=== PATIENT | male | born 1990 | race Hispanic/Latino ===

== ENCOUNTER 2018-01-25 13:39 | Emergency (ER) | payer SELFPAY ==
[~2018-01-25 13:39] MED LIST: ISOVUE-370 76%-LOCM 1 ML ONE
[2018-01-25 14:21] LABS: #Eosinphils 0.2 thou/uL (0.0-0.7); #Lymphocytes 2.6 thou/uL (1.20-3.40); #Monocytes 0.5 thou/uL (0.11-0.59); #Neutrophils 6.6 thou/uL (1.40-6.50); %Basophils 0.1 % (0.0-1.0); %Eosinophils 1.9 % (0.0-10.0); %Lymphocytes 26.4 % (21.0-51.0); %Monocytes 5.1 % (0.0-10.0); %Neutrophils 66.4 % (42.0-75.0); Hemoglobin 14.1 g/dL (14.0-18.0); Mean Corpuscular HGB CONC 33.2 g/dL (32.0-36.0); Mean Corpuscular Hemoglobin 29.4 pg (27.0-31.0); Mean Corpuscular Volume 88.6 fl (80.0-94.0); Mean Platelet Volume 6.8 fL (7.4-10.4); Platelet Count 306 thou/uL (130-400); RBC Distribution Width 11.7 % (11.5-14.5); Red Blood Cell (RBC) Count 4.81 mill/uL (4.70-6.10)
--- NOTE | 2018-01-25 14:21 | RAD ---
PORTABLE AP CHEST X-RAY: 01/25/2018 HISTORY: Chest pain, which started this morning. History of appendectomy four to five days ago. COMPARISON: 10/12/2009 FINDINGS: The cardiac silhouette is magnified by projection. The pulmonary vasculature is within normal limits . The lungs are clear. There has been no interval change from the prior study, given differences in technique. IMPRESSION: No acute cardiopulmonary process. POS: [facility]
[2018-01-25 14:48] LABS: ALT (SGPT) 41 U/L (8-55); AST (SGOT) 18 U/L (5-34); Albumin 3.9 g/dL (3.5-5.0); Alkaline Phosphatase 84 U/L (40-150); Anion Gap 10 mmol/L (10-20); BUN (Urea Nitrogen) 13 mg/dL (8.9-20.6); Bilirubin, Total 0.5 mg/dL (0.2-1.2); CK (CPK) 34 U/L (30-200); Calc. Creatinine Clearance 0 mL/min (70-130); Calcium 9.3 mg/dL (7.8-10.44); Carbon Dioxide 29 mmol/L (22-29); Chloride 102 mmol/L (98-107); Estimated GFR-MDRD Greater than 90; Globulin 3.2 g/dL (2.4-3.5); Glucose 129 mg/dL (70-105); Potassium 3.7 mmol/L (3.5-5.1); Protein, Total 7.1 g/dL (6.0-8.3); Sodium 137 mmol/L (136-145)
[2018-01-25 14:52] LABS: CKMB 0.7 ng/mL (0-6.6); Troponin I Less than 0.010 ng/mL (< 0.028)
--- NOTE | 2018-01-25 14:53 | CT ---
CT PULMONARY ENGIOGRAM WITH IV CONTRAST AND 3D POSTPROCESSING: HISTORY: Dyspnea. Chest pain. FINDINGS: No filling defects are seen in the pulmonary arterial vasculature to suggest pulmonary embolism. The thoracic aorta is well opacified without aneurysmal dissection. No pleural or pericardial effusions are seen. No pneumothoraces or lobar consolidation are identified. There are mild dependent change s of the lung bases. No acute osseous abnormalities re noted. IMPRESSION: No CT evidence of pulmonary embolism. POS: [facility]
[2018-01-25] MEDS ORDERED: Ondansetron PF 4 MG/2 ML Vial ONE (15:07)
--- NOTE | 2018-01-29 15:34 | EKG ---
Test Reason : Blood Pressure : / mmHG Vent. Rate : 089 BPM Atrial Rate : 089 BPM P-R Int : 140 ms QRS Dur : 084 ms QT Int : 324 ms P-R-T Axes : 023 055 072 degrees QTc Int : 394 ms Normal sinus rhythm Nonspecific T wave abnormality Abnormal ECG Confirmed by SANDOR RAZO ([id number]), editor in chief newspaper DIMA DOHERTY ([id number]) on 01/29/2018 3:33:50 PM Referred By: Confirmed By:SANDOR RAZO
== END 2018-01-25 16:16 | disposition home or self-care (01) ==
LOC: ERS 13:39
DX: R07.2 Precordial pain (principal); G89.18 Other acute postprocedural pain; R10.9 Unspecified abdominal pain
CPT/HCPCS: 71045; 71275; 80053; 82550; 82553; 84484; 85025; 93005; 94760; 96361; 96374; 96375; J2270; J2405

== ENCOUNTER 2018-07-15 03:30 | Emergency (ER) | payer SELFPAY ==
[2018-07-15] MEDS ORDERED: Ketorolac Tromethamine 60 MG/2 ML VIAL ONE (03:53)
== END 2018-07-15 04:21 | disposition home or self-care (01) ==
LOC: ERS 03:30
DX: S46.212A Strain of muscle, fascia and tendon of other parts of biceps, left arm, initial encounter (principal); X50.0XXA Overexertion from strenuous movement or load, initial encounter
CPT/HCPCS: 96372; J1885

== ENCOUNTER 2018-09-21 07:51 | Emergency (ER) | payer OTHER, SELFPAY ==
[2018-09-21 08:32] LABS: #Eosinphils 0.1 thou/uL (0.0-0.7); #Lymphocytes 1.6 thou/uL (1.20-3.40); #Monocytes 0.7 thou/uL (0.11-0.59); #Neutrophils 7.2 thou/uL (1.40-6.50); %Basophils 0.5 % (0.0-1.0); %Eosinophils 1.5 % (0.0-10.0); %Lymphocytes 16.5 % (21.0-51.0); %Monocytes 7.2 % (0.0-10.0); %Neutrophils 74.4 % (42.0-75.0); Hemoglobin 15.1 g/dL (14.0-18.0); Mean Corpuscular HGB CONC 33.9 g/dL (32.0-36.0); Mean Corpuscular Hemoglobin 30.1 pg (27.0-31.0); Mean Corpuscular Volume 88.9 fL (78.0-98.0); Mean Platelet Volume 7.5 fL (7.4-10.4); Platelet Count 254 thou/uL (130-400); RBC Distribution Width 12.1 % (11.5-14.5); Red Blood Cell (RBC) Count 5.01 mill/uL (4.70-6.10); White Blood Cell (WBC) Count 9.7 thou/uL (4.8-10.8)
[2018-09-21 08:54] LABS: ALT (SGPT) 43 U/L (8-55); AST (SGOT) 30 U/L (5-34); Albumin 4.2 g/dL (3.5-5.0); Alkaline Phosphatase 71 U/L (40-150); Anion Gap 11 mmol/L (10-20); BUN (Urea Nitrogen) 14 mg/dL (8.9-20.6); Bilirubin, Total 0.6 mg/dL (0.2-1.2); Calc. Creatinine Clearance 0 mL/min (70-130); Carbon Dioxide 26 mmol/L (22-29); Chloride 101 mmol/L (98-107); Estimated GFR-MDRD Greater than 90; Globulin 3.6 g/dL (2.4-3.5); Glucose 111 mg/dL (70-105); Lipase 23 U/L (8-78); Potassium 4.2 mmol/L (3.5-5.1); Protein, Total 7.8 g/dL (6.0-8.3); Sodium 134 mmol/L (136-145)
[2018-09-21 08:58] LABS: Troponin I Less than 0.010 ng/mL (< 0.028)
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
[2018-09-21 09:10] LABS: Bilirubin Negative (Negative); Blood, Urine Negative (Negative); Clarity CLEAR (Clear); Glucose, Urine (Dipstick) Negative (Negative); Leukocyte Negative (Negative); Nitrite Negative (Negative); Protein, Urine (Dipstick) Negative (Neg-Trace); Specific Gravity, Urine 1.038 (1.002-1.036); Urobilinogen 0.2 mg/dL (0.2-1.0)
[2018-09-21] MEDS ORDERED: Ketorolac Tromethamine 30 MG/ML VIAL ONE (09:19)
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
[2018-09-21] MEDS ORDERED: ISOVUE-370 76%-LOCM 1 ML ONE (11:16)
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
== END 2018-09-21 10:05 | disposition home or self-care (01) ==
LOC: ERS 07:51
DX: S00.91XA Abrasion of unspecified part of head, initial encounter (principal); S60.511A Abrasion of right hand, initial encounter; V49.9XXA Car occupant (driver) (passenger) injured in unspecified traffic accident, initial encounter
CPT/HCPCS: 36415; 70450; 71260; 72125; 74177; 80053; 81003; 83605; 83690; 84484; 85025; 93005; 96374; J1885

== ENCOUNTER 2018-11-18 15:08 | Observation (INO) | payer SELFPAY ==
[2018-11-18] MEDS ORDERED: Ketorolac Tromethamine 30 MG/ML VIAL ONE (15:33)
[2018-11-18 15:59] LABS: ALT (SGPT) 40 U/L (8-55); AST (SGOT) 25 U/L (5-34); Albumin 4.2 g/dL (3.5-5.0); Alkaline Phosphatase 79 U/L (40-150); Anion Gap 14 mmol/L (10-20); BUN (Urea Nitrogen) 11 mg/dL (8.9-20.6); Bilirubin, Total 1.4 mg/dL (0.2-1.2); Calc. Creatinine Clearance 0 mL/min (70-130); Calcium 9.3 mg/dL (7.8-10.44); Carbon Dioxide 22 mmol/L (22-29); Chloride 104 mmol/L (98-107); Estimated GFR-MDRD Greater than 90; Glucose 108 mg/dL (70-105); Potassium 4.1 mmol/L (3.5-5.1); Protein, Total 8.2 g/dL (6.0-8.3); Sodium 136 mmol/L (136-145)
[2018-11-18 16:04] LABS: Band 14 % (5-11); Eosinophils 1 % (0-10); Hemoglobin 14.3 g/dL (14.0-18.0); Lymphocytes 2 % (21-51); MDiff Complete? YES; Mean Corpuscular HGB CONC 31.6 g/dL (32.0-36.0); Mean Corpuscular Hemoglobin 27.6 pg (27.0-31.0); Mean Corpuscular Volume 87.5 fL (78.0-98.0); Mean Platelet Volume 8.3 fL (7.4-10.4); Monocytes 6 % (0-10); Neutrophil 67 % (42-75); PLT Morphology Comment Appears Adequate; Platelet Count 235 thou/uL (130-400); RBC Distribution Width 11.4 % (11.5-14.5); Reactive Lymphocytes 9 % (0-10); Red Blood Cell (RBC) Count 5.19 mill/uL (4.70-6.10); Toxic Granulation SLIGHT; Vacuoles SLIGHT; White Blood Cell (WBC) Count 16.2 thou/uL (4.8-10.8)
[2018-11-18] MEDS ORDERED: Acetaminophen 500 MG TAB ONE (17:03)
--- NOTE | 2018-11-18 17:35 | ULT ---
RIGHT LOWER EXTREMITY VENOUS ULTRASOUND WITH DOPPLER: 11/18/18 HISTORY: Right leg pain, edema, and erythema. Symptoms x1 day. COMPARISON: None. TECHNIQUE: Garcia scale, color flow, doppler imaging with spectral waveform analysis performed in the right lower extremity venous system. FINDINGS: There are enlarged lymph nodes in the right groin. [employer] lymph node measures 2.1 cm in maxim um dimension. There is compressibility, presence of flow, and augmentation of the common femoral vein , femoral vein, and popliteal vein. There is soft tissue edema at the level of the anterior tibia. Th ere is a small fluid collection measuring 4.6 x 0.8 cm. Possibility of an abscess cannot be excluded. IMPRESSION: 1. No evidence of thrombus in the right lower extremity deep venous system. 2. Reactive lymph nodes in the right inguinal region. 3. Right lower extremity edema. Possible fluid collection in the anterior soft tissues. Abscess cannot be excluded. POS: [facility]
[2018-11-18 20:51] VITALS: BMI 45.6
[2018-11-18] MEDS ORDERED: Ondansetron ODT 4 MG TAB PO PRN (21:15)
[2018-11-18] MEDS ORDERED: Acetaminophen 325 MG TAB PO PRN (21:15)
--- NOTE | 2018-11-18 21:15 | PDOC.FPRHP ---
- History of Present Illness Chief Complaint: Cellulitis History of Present Illness: This is a 28 yo obese male who presents as a direct admit from [facility] ER with a cc of right leg redness and pain. He reports his symptoms began yesterday evening after he hit his leg on something. He states that he then had some swelling in his leg and reports pain with movement of that leg. Pt reports subjective fever and chills. He is unsure if the swelling or redness has changed. ED Course: Vanc at [facility] - Allergies/Adverse Reactions Allergies Allergy/AdvReac Type Severity Reaction Status Date / Time No Known Allergies Allergy Unverified 11/18/18 20:59 - Home Medications Medication Instructions Recorded Confirmed Type No Known 11/18/18 11/18/18 History - History PMHx: None PSHx: none FHx: DM2 on both sides of family Social: denies VENITA - Review of Systems General: reports: fever/chills. denies: weight/appetite/sleep changes Eyes: denies: eye pain, vision changes ENT: denies: nasal congestion, rhinorrhea Respiratory: denies: cough, shortness of breath Cardiovascular: denies: chest pain, palpitation Gastrointestinal: denies: nausea, vomiting, diarrhea, constipation Genitourinary: denies: dysuria Skin: reports: rashes (see HPI) Musculoskeletal: reports: pain, tenderness, swelling. denies: stiffness Neurological: denies: numbness, syncope Psychological: denies: anxiety, depression - Vital signs BP: 126/62 HR: 93 RR: 18 Tmax: 99.0 Pox: 98% on ra Wt: 124 kg - Physical Exam Constitutional: NAD, awake, alert and oriented, well developed HEENT: normocephalic and atraumatic, MMM Neck: FROM, no JVD Chest: no-tender to palpation Heart: RRR, normal S1/S2, no murmurs/rubs/gallops Lungs: CTAB, no respiratory distress, good air movement Abdomen: soft, non-tender, bowel sounds present, no masses/distention Musculoskeletal: normal structure, ROM grossly normal Neurological: no focal deficit Skin: other (erythematous rash ~5x10cm, mild swelling, increased warmth, no fluctuance) Heme/Lymphatic: no unusual bruising or bleeding Psychiatric: normal mood and affect FMR H&P: Results - Labs Result Diagrams: 11/18/18 15:40 11/18/18 15:40 Lab results: WBC 16.2 thou/uL (4.8-10.8) H 11/18/18 15:40 Hgb 14.3 g/dL (14.0-18.0) 11/18/18 15:40 Hct 45.4 % (42.0-52.0) 11/18/18 15:40 MCV 87.5 fL (78.0-98.0) 11/18/18 15:40 Plt Count 235 thou/uL (130-400) 11/18/18 15:40 Band Neuts % (Manual) 14 % (5-11) H 11/18/18 15:40 Sodium 136 mmol/L (136-145) 11/18/18 15:40 Potassium 4.1 mmol/L (3.5-5.1) 11/18/18 15:40 Chloride 104 mmol/L (98-107) 11/18/18 15:40 Carbon Dioxide 22 mmol/L (22-29) 11/18/18 15:40 BUN 11 mg/dL (8.9-20.6) 11/18/18 15:40 Creatinine 0.78 mg/dL (0.7-1.3) 11/18/18 15:40 Glucose 108 mg/dL (70-105) H 11/18/18 15:40 Calcium 9.3 mg/dL (7.8-10.44) 11/18/18 15:40 Total Bilirubin 1.4 mg/dL (0.2-1.2) H 11/18/18 15:40 AST 25 U/L (5-34) 11/18/18 15:40 ALT 40 U/L (8-55) 11/18/18 15:40 Alkaline Phosphatase 79 U/L (40-150) 11/18/18 15:40 Creatine Kinase 153 U/L (30-200) 11/18/18 15:40 Serum Total Protein 8.2 g/dL (6.0-8.3) 11/18/18 15:40 Albumin 4.2 g/dL (3.5-5.0) 11/18/18 15:40 - Radiology Interpretation US - venous Status: report reviewed by me (Rt venous doppler reveals no DVT, reactive inguinal lymphadenopathy, and a small amount of fluid) FMR H&P: A/P - Problem List (1) Cellulitis of right anterior lower leg Current Visit: Yes Status: Acute Code(s): L03.115 - CELLULITIS OF RIGHT LOWER LIMB (2) Adult BMI 45.0-49.9 kg/sq m Current Visit: Yes Status: Acute Code(s): Z68.42 - BODY MASS INDEX (BMI) 45.0-49.9, ADULT - Plan This is a 28 yo male Cellulitis -Admit to obs -1 dose of vanc in [facility], change to PO doxy -monitor for clinical improvement, likely discharge in the morning Obesity -encouraged weight loss, consider sleep study for ARACELI through PCP Code: full Prophylaxis: none Family: none Disposition: home in 1-2 days FMR H&P: Upper Level - Pertinent history 28M presents as transfer for one day history of right timmons redness. Apparently he had a pop and felt leg pain while shoveling. It is associated with a oval, approximately 4 by 3 inch erythematous patch that is tender to palpation. He went to [facility] ER. CBC shows elevated WBC with bandemia. A US of his timmons was done. It found a small fluid collection, but unable to rule out abscess, enlarged lymph node and no evidence of DVT. Patient was then sent here for IV treatment of presumed cellulitis. - Pertinent findings Gen: Alert, grossly oriented HEENT: Normocephalic, white sclera, trachea midline Resp: Unlabored, easy breathing Derm: 3x4 oval erythematous patch with ill defined borders. No puncture wound, discharge seen. - Plan Date/Time: 11/18/182113 I, [Justin Coats], have evaluated this patient and agree with findings/plan as outlined by sports internship resident. Pertinent changes/additions are listed here. 1. Non-purulent Cellulitis - Based on bandemia and physical finding/US, though simple trauma is a consideration - Doxycycline, transition to oral tomorrow.
[2018-11-19] MEDS ORDERED: Ibuprofen 800 MG TAB PO SCH (05:00)
[2018-11-19] MEDS: Acetaminophen 500 MG TAB PO SCH ×2 (05:14→11:22)
[2018-11-19 05:31] LABS: #Eosinphils 0.1 thou/uL (0.0-0.7); #Lymphocytes 1.5 thou/uL (1.20-3.40); #Monocytes 1.1 thou/uL (0.11-0.59); #Neutrophils 11.8 thou/uL (1.40-6.50); %Basophils 0.2 % (0.0-1.0); %Eosinophils 0.8 % (0.0-10.0); %Lymphocytes 10.1 % (21.0-51.0); %Monocytes 7.8 % (0.0-10.0); %Neutrophils 81.1 % (42.0-75.0); Hemoglobin 13.7 g/dL (14.0-18.0); Mean Corpuscular HGB CONC 33.5 g/dL (32.0-36.0); Mean Corpuscular Hemoglobin 29.6 pg (27.0-31.0); Mean Corpuscular Volume 88.2 fL (78.0-98.0); Mean Platelet Volume 7.8 fL (7.4-10.4); Platelet Count 221 thou/uL (130-400); Red Blood Cell (RBC) Count 4.63 mill/uL (4.70-6.10); White Blood Cell (WBC) Count 14.6 thou/uL (4.8-10.8)
[2018-11-19 05:37] LABS: Anion Gap 11 mmol/L (10-20); BUN (Urea Nitrogen) 13 mg/dL (8.9-20.6); Calc. Creatinine Clearance 259 mL/min (70-130); Calcium 9.1 mg/dL (7.8-10.44); Carbon Dioxide 26 mmol/L (22-29); Chloride 105 mmol/L (98-107); Estimated GFR-MDRD Greater than 90; Glucose 120 mg/dL (70-105); Potassium 4.2 mmol/L (3.5-5.1); Sodium 138 mmol/L (136-145)
--- NOTE | 2018-11-19 06:31 | PDOC.FM ---
- Subjective Subjective: NAEO. Patient reports that his leg pain is improved this morning after getting pain medicine. Denies any N/V, chest pain, or SOB. Endorses subjective fever and chills. - Objective MAR Reviewed: Yes Vital Signs & Weight: Vital Signs (12 hours) Temp Pulse Resp BP BP Pulse Ox 11/19/18 04:03 99.4 F 102 H 20 124/65 95 11/18/18 19:00 99.0 F 93 18 126/62 98 Weight Weight 124.466 kg I&O: 11/17/18 11/18/18 11/19/18 06:59 06:59 06:59 Intake Total 600 Balance 600 Result Diagrams: 11/19/18 04:48 11/19/18 04:48 Phys Exam - Physical Examination Constitutional: NAD HEENT: moist MMs Neck: supple, full ROM Respiratory: no wheezing, no rales, no rhonchi, clear to auscultation bilateral Cardiovascular: RRR, no significant murmur Gastrointestinal: soft, positive bowel sounds mild, nonpitting edema on anterior aspect of timmons of RLE with minimally spreading erythema Neurological: non-focal, moves all 4 limbs Psychiatric: normal affect, A&O x 3 Skin: no rash, normal turgor Dx/Plan (1) Cellulitis of right anterior lower leg Code(s): L03.115 - CELLULITIS OF RIGHT LOWER LIMB Status: Acute (2) Adult BMI 45.0-49.9 kg/sq m Code(s): Z68.42 - BODY MASS INDEX (BMI) 45.0-49.9, ADULT Status: Chronic - Plan Plan: This is a 28 yo male who was directly admitted from [place] for right leg cellulitis. Cellulitis of right leg: - s/p 1 dose of vanc in [facility]. Will start on PO doxy today as patient does not appear to be septic and has not even attempted outpatient treatment yet. Obesity: - Will encourage weight loss. Code: full Prophylaxis: none Family: none Disposition: Likely d/c home today on PO antibiotics. Addendum - Attending - Attending Attestation Date/Time: 11/19/18 [id number] I personally evaluated the patient and discussed the management with Dr. Tay I agree with the History, Examination, Assessment and Plan documented above with any addition or exceptions noted below- 28 yo male with no significant presented with 1 day h/o pain and redness over right lower extremity. Does not recall any injury to area, bug bites. Subj fever/chills. No drainage from area. PMH/PSH/Meds/All reviewed and agree with resident's documentation. Afebrile VSS. Exam repeated by me and agree with resident's findings. Labs: WBC= 16.2 -> 14.6, H/H= 14.3/45.4, Na=029, K=4.2, Bh=073, CO2=26, BUN/Cr= 13/0.76 A/P: 1) Cellulitis- no increase past margins- place to d/c home today with po antibiotics. Will have patient follow-up on Wednesday
[2018-11-19 08:18] VITALS: BP 120/64; TEMP 98.5
[2018-11-19] MEDS ORDERED: Doxycycline 100 MG CAP PO SCH (09:00)
--- NOTE | 2018-11-20 04:57 | DIS ---
DATE OF ADMISSION: 11/18/2018 DATE OF DISCHARGE: 11/19/2018 RESIDENT: Heidi Tay MD ADMITTING ATTENDING: Maricruz Sue MD DISCHARGE ATTENDING: Maricruz Sue MD CONSULTS: None. PROCEDURE: Right lower extremity venous Doppler ultrasound, which showed no evidence of thrombus with some reactive lymph nodes in the right inguinal region and right lower extremity edema with possible fluid collection in the anterior soft tissues. PRIMARY DIAGNOSIS: Cellulitis of the right lower extremity. SECONDARY DIAGNOSIS: Obesity. DISCHARGE MEDICATIONS: Doxycycline 100 mg p.o. b.i.d. for 13 days. DISCONTINUED MEDICATIONS: None. HOSPITAL COURSE: The patient is a 28-year-old gentleman with no significant past medical history who presented to the [facility] Emergency Department from [facility] with a chief complaint of right leg pain, redness, swelling that began the evening prior to presentation after he hit his leg on something. He noticed some swelling and reported pain with movement and some associated subjective fever and chills as well. Due to possible sepsis secondary to cellulitis as he had an elevated white blood cell count with bandemia and tachycardia, the patient was given 1 g of IV vancomycin, 1 g of p.o. Tylenol, 30 mg of IV Toradol, and 1 L of normal saline at the outside emergency department and transferred to [facility] Emergency Department in [place]. Upon arrival to the [facility] Emergency Department, the patient was noted to be tachycardic at 120, but all of the vitals were within normal limits. He then had an ultrasound of his right lower extremity in order to rule out any possible abscess and/or DVT in the patient's leg. The ultrasound was negative for any signs of DVT and showed a possible small quarter-size fluid collection. However, the patient remained hemodynamically stable and afebrile overnight and was therefore transitioned to p.o. antibiotics on morning of discharge. By the morning of discharge, the patient reported improvement in the pain in his right lower extremity and was therefore cleared for discharge home on p.o. antibiotics. DISPOSITION: Stable. DISCHARGE INSTRUCTIONS: 1. Location: Home. 2. Diet: Regular diet, no restrictions. 3. Activity: As tolerated, no restrictions. 4. Follow-up: The patient was instructed to follow up with the same physician on 11/23/2018 for outpatient monitoring to ensure adequate infection response to PO antibiotics. Job ID: [id number] [id number]
== END 2018-11-19 12:09 | disposition home or self-care (01) ==
LOC: SCSER 15:08 → 2SW 17:20
PROVIDERS: ADMIT Family Medicine; ATTEND Family Medicine
DX: L03.115 Cellulitis of right lower limb (principal); E66.9 Obesity, unspecified; Z68.42 Body mass index [BMI] 45.0-49.9, adult; Z79.2 Long term (current) use of antibiotics; Z79.899 Other long term (current) drug therapy
CPT/HCPCS: 36415; 80048; 80053; 82550; 85025; 96361; 96365; 96375; G0378; J1885; J3370

== ENCOUNTER 2022-04-29 21:23 | Emergency (ER) | payer SELFPAY ==
[2022-04-29 21:47] LABS: #Basophils 0.1 thou/uL (0.0-0.2); #Eosinphils 0.4 thou/uL (0.0-0.7); #Lymphocytes 2.2 thou/uL (1.20-3.40); #Monocytes 0.6 thou/uL (0.11-0.59); %Basophils 0.5 % (0.0-1.0); %Eosinophils 3.2 % (0.0-10.0); %Lymphocytes 19.4 % (21.0-51.0); %Monocytes 5.6 % (0.0-10.0); %Neutrophils 71.3 % (42.0-75.0); Hemoglobin 14.3 g/dL (14.0-18.0); Mean Corpuscular HGB CONC 33.5 g/dL (32.0-36.0); Mean Corpuscular Hemoglobin 29.3 pg (27.0-31.0); Mean Corpuscular Volume 87.4 fL (78.0-98.0); Mean Platelet Volume 7.5 fL (7.4-10.4); Platelet Count 259 thou/uL (130-400); RBC Distribution Width 12.2 % (11.5-14.5); White Blood Cell (WBC) Count 11.2 thou/uL (4.8-10.8)
[2022-04-29 22:09] LABS: ALT (SGPT) 59 U/L (8-55); AST (SGOT) 31 U/L (5-34); Albumin 4.2 g/dL (3.5-5.0); Alkaline Phosphatase 79 U/L (40-110); Anion Gap 11 mmol/L (10-20); BUN (Urea Nitrogen) 13 mg/dL (8.9-20.6); Bilirubin, Total 0.6 mg/dL (0.2-1.2); Calc. Creatinine Clearance 0 mL/min (70-130); Calcium 9.4 mg/dL (7.8-10.44); Carbon Dioxide 31 mmol/L (22-29); Chloride 100 mmol/L (98-107); Globulin 4.1 g/dL (2.4-3.5); Glucose 138 mg/dL (70-105); Potassium 4.1 mmol/L (3.5-5.1); Protein, Total 8.3 g/dL (6.0-8.3); Sodium 138 mmol/L (136-145)
== END 2022-04-30 01:37 | disposition home or self-care (01) ==
LOC: ERS 21:23
DX: R07.9 Chest pain, unspecified (principal)
CPT/HCPCS: 36415; 71045; 80053; 83880; 84484; 85025; 93005

== ENCOUNTER 2023-08-10 01:33 | Emergency (ER) | payer SELFPAY ==
[2023-08-10 02:15] LABS: #Basophils 0.1 thou/uL (0.0-0.2); #Eosinphils 0.6 thou/uL (0.0-0.7); #Monocytes 0.5 thou/uL (0.11-0.59); %Basophils 0.5 % (0.0-1.0); %Eosinophils 6.8 % (0.0-10.0); %Lymphocytes 21.4 % (21.0-51.0); %Monocytes 5.7 % (0.0-10.0); %Neutrophils 65.4 % (42.0-75.0); Hematocrit 42.5 % (42.0-52.0); Hemoglobin 14.3 g/dL (14.0-18.0); Mean Corpuscular HGB CONC 33.6 g/dL (32.0-36.0); Mean Corpuscular Hemoglobin 29.5 pg (27.0-31.0); Mean Corpuscular Volume 87.8 fl (78.0-98.0); Mean Platelet Volume 9.8 fL (7.4-10.4); Platelet Count 234 10x3/uL (130-400); RBC Distribution Width 12.6 % (11.5-14.5); Red Blood Cell (RBC) Count 4.84 mill/uL (4.70-6.10); White Blood Cell (WBC) Count 9.2 10x3/uL (4.8-10.8)
[2023-08-10] MEDS ORDERED: Aspirin Chewable 81 MG TAB ONE (02:22)
[2023-08-10 02:37] LABS: ALT (SGPT) 26 U/L (8-55); AST (SGOT) 18 U/L (5-34); Albumin 4.2 g/dL (3.5-5.0); Alkaline Phosphatase 77 U/L (40-110); Anion Gap 15 mmol/L (10-20); BUN (Urea Nitrogen) 20 mg/dL (8.9-20.6); Bilirubin, Total 0.4 mg/dL (0.2-1.2); Calc. Creatinine Clearance 0 mL/min (70-130); Calcium 9.4 mg/dL (7.8-10.44); Carbon Dioxide 25 mmol/L (22-29); Chloride 102 mmol/L (98-107); Estimated GFR 121; Globulin 3.9 g/dL (2.4-3.5); Glucose 100 mg/dL (70-105); Lipase 35 U/L (8-78); Protein, Total 8.1 g/dL (6.0-8.3); Sodium 138 mmol/L (136-145)
[2023-08-10 02:45] LABS: Magnesium 1.9 mg/dL (1.6-2.6)
[2023-08-10 02:49] LABS: Troponin I Less than 0.010 ng/mL (< 0.028)
[2023-08-10] MEDS ORDERED: Ketorolac Tromethamine 30 MG/ML VIAL ONE (03:16)
== END 2023-08-10 04:03 | disposition home or self-care (01) ==
LOC: ERS 01:33
DX: R07.9 Chest pain, unspecified (principal)
CPT/HCPCS: 71045; 80053; 83690; 83735; 84484; 85025; 93005; 96374; J1885

== ENCOUNTER 2024-05-31 17:07 | Emergency (ER) | payer SELFPAY ==
[2024-05-31] MEDS ORDERED: Ondansetron PF 4 MG/2 ML Vial ONE (17:26)
[2024-05-31 17:32] LABS: #Basophils 0.04 10x3/uL (0.0-0.2); %Basophils 0.4 % (0.0-1.0); %Lymphocytes 18.3 % (21.0-51.0); %Monocytes 6.7 % (0.0-10.0); %Neutrophils 70.2 % (42.0-75.0); Hematocrit 44.7 % (42.0-52.0); Hemoglobin 14.7 g/dL (14.0-18.0); Mean Corpuscular HGB CONC 32.9 g/dL (32.0-36.0); Mean Corpuscular Hemoglobin 28.8 pg (27.0-31.0); Mean Corpuscular Volume 87.6 fL (78.0-98.0); Mean Platelet Volume 10.3 fL (7.4-10.4); Platelet Count 262 10x3/uL (130-400)
[2024-05-31 18:07] LABS: ALT (SGPT) 72 U/L (8-55); AST (SGOT) 51 U/L (5-34); Albumin 4.2 g/dL (3.5-5.0); Alkaline Phosphatase 84 U/L (40-110); Anion Gap 18 mmol/L (10-20); BUN (Urea Nitrogen) 16 mg/dL (8.9-20.6); Bilirubin, Total 0.8 mg/dL (0.2-1.2); CK (CPK) 160 U/L (30-200); Calc. Creatinine Clearance 0 mL/min (70-130); Calcium 10.2 mg/dL (7.8-10.44); Carbon Dioxide 24 mmol/L (22-29); Chloride 99 mmol/L (98-107); Estimated GFR 111; Globulin 4.7 g/dL (2.4-3.5); Glucose 168 mg/dL (70-105); Potassium 4.3 mmol/L (3.5-5.1); Protein, Total 8.9 g/dL (6.0-8.3); Sodium 137 mmol/L (136-145)
== END 2024-05-31 20:14 | disposition home or self-care (01) ==
LOC: ERS 17:07
DX: T67.5XXA Heat exhaustion, unspecified, initial encounter (principal); E86.0 Dehydration; R74.02 Elevation of levels of lactic acid dehydrogenase [LDH]; X32.XXXA Exposure to sunlight, initial encounter; Y93.89 Activity, other specified; Y92.69 Other specified industrial and construction area as the place of occurrence of the external cause
CPT/HCPCS: 36415; 80053; 82550; 83605; 85025; 96374; J2405

== ENCOUNTER 2024-10-10 20:17 | Inpatient (IN) | payer SELFPAY ==
[~2024-10-10 20:17] MED LIST changes: -ISOVUE-370 76%-LOCM 1 ML ONE; +Iopamidol-370 76% 500 ML MDV (1 ML CHARGE) ONE
[2024-10-10 20:55] LABS: #Basophils 0.05 10x3/uL (0.0-0.2); #Eosinophils Less than 0.03 10x3/uL (0.0-0.7); %Basophils 0.2 % (0.0-1.0); %Lymphocytes 2.6 % (21.0-51.0); %Monocytes 2.3 % (0.0-10.0); %Neutrophils 94.2 % (42.0-75.0); Hematocrit 44.3 % (42.0-52.0); Hemoglobin 14.5 g/dL (14.0-18.0); Mean Corpuscular HGB CONC 32.7 g/dL (32.0-36.0); Mean Corpuscular Hemoglobin 28.4 pg (27.0-31.0); Mean Corpuscular Volume 86.7 fL (78.0-98.0); Mean Platelet Volume 10.3 fL (7.4-10.4); Platelet Count 231 10x3/uL (130-400); RBC Distribution Width 13.1 % (11.5-14.5); Red Blood Cell (RBC) Count 5.11 mill/uL (4.70-6.10)
[2024-10-10 21:27] LABS: ALT (SGPT) 91 U/L (8-55); AST (SGOT) 39 U/L (5-34); Albumin 3.7 g/dL (3.5-5.0); Alkaline Phosphatase 87 U/L (40-110); Anion Gap 14 mmol/L (10-20); BUN (Urea Nitrogen) 12 mg/dL (8.9-20.6); Bilirubin, Total 1.1 mg/dL (0.2-1.2); Calc. Creatinine Clearance 0 mL/min (70-130); Calcium 9.5 mg/dL (7.8-10.44); Carbon Dioxide 23 mmol/L (22-29); Chloride 97 mmol/L (98-107); Estimated GFR 118; Glucose 365 mg/dL (70-105); Potassium 4.2 mmol/L (3.5-5.1); Protein, Total 7.7 g/dL (6.0-8.3); Sodium 130 mmol/L (136-145)
[2024-10-10] MEDS ORDERED: Ketorolac Tromethamine 30 MG (1 mL) VIAL ONE (23:08)
[2024-10-10] MEDS ORDERED: Acetaminophen 500 MG TAB ONE (23:08)
[2024-10-10] MEDS ORDERED: Sodium Chloride 0.9% 100 ML ONE (23:16)
[2024-10-10] MEDS ORDERED: Cefepime 2 GM VIAL ONE (23:16)
[2024-10-10] MEDS ORDERED: Ondansetron ODT 4 MG TAB PO PRN (23:55)
[2024-10-10] MEDS ORDERED: Ketorolac Tromethamine 30 MG (1 mL) VIAL IVP PRN (23:55)
[2024-10-10] MEDS ORDERED: Glucagon 1 MG/ML KIT IM PRN (23:55)
[2024-10-10] MEDS ORDERED: Dextrose 50% Abboject 50 ML SYRINGE SLOW IVP PRN (23:55)
[2024-10-10] MEDS ORDERED: Dextrose 5% in Water 1,000 ML IV PRN (23:55)
[2024-10-11 00:14] LABS: Lactic Acid 2.03 mmol/L (0.5-2.2)
[2024-10-11] MEDS ORDERED: Nystatin Powder 15 GM BOT TOP PRN (01:22)
[2024-10-11] MEDS: Vancomycin (BATCH) 2.5 GM in Premix 1 BAG IVPB SCH (02:00)
[2024-10-11 02:01] VITALS: BMI 56.1
[2024-10-11] MEDS: Acetaminophen 325 MG TAB PO PRN (03:18)
[2024-10-11 04:24] LABS: #Basophils 0.04 10x3/uL (0.0-0.2); %Basophils 0.2 % (0.0-1.0); %Eosinophils 0.3 % (0.0-10.0); %Lymphocytes 3.8 % (21.0-51.0); %Monocytes 2.1 % (0.0-10.0); %Neutrophils 92.9 % (42.0-75.0); Hematocrit 42.4 % (42.0-52.0); Hemoglobin 13.7 g/dL (14.0-18.0); Mean Corpuscular HGB CONC 32.3 g/dL (32.0-36.0); Mean Corpuscular Hemoglobin 28.2 pg (27.0-31.0); Mean Corpuscular Volume 87.2 fL (78.0-98.0); Mean Platelet Volume 10.5 fL (7.4-10.4); Platelet Count 209 10x3/uL (130-400); RBC Distribution Width 13.3 % (11.5-14.5); Red Blood Cell (RBC) Count 4.86 mill/uL (4.70-6.10)
[2024-10-11 04:34] LABS: Vancomycin, Random 32.7 ug/mL (See Comment)
[2024-10-11 04:35] LABS: Hemoglobin A1c 10.1 % (4.0-6.0)
[2024-10-11 04:36] LABS: ALT (SGPT) 76 U/L (8-55); AST (SGOT) 29 U/L (5-34); Albumin 3.4 g/dL (3.5-5.0); Alkaline Phosphatase 82 U/L (40-110); Anion Gap 12 mmol/L (10-20); BUN (Urea Nitrogen) 9 mg/dL (8.9-20.6); Calc. Creatinine Clearance 301 mL/min (70-130); Calcium 8.9 mg/dL (7.8-10.44); Carbon Dioxide 24 mmol/L (22-29); Chloride 101 mmol/L (98-107); Cholesterol 127 mg/dl (< 200 Desired); Estimated GFR 123; Globulin 3.8 g/dL (2.4-3.5); Glucose 228 mg/dL (70-105); HDL Cholesterol 32 mg/dL (>60 Neg Risk); LDL Cholesterol, Calculated 68 mg/dL; Potassium 3.8 mmol/L (3.5-5.1); Protein, Total 7.2 g/dL (6.0-8.3); Sodium 133 mmol/L (136-145); Triglycerides 133 mg/dL (Less than 150)
[2024-10-11] MEDS ORDERED: Lactated Ringer's 1,000 ML IV SCH (06:00)
[2024-10-11] MEDS: Lactated Ringer's 1,000 ML IV SCH (06:30)
[2024-10-11] MEDS: Insulin Lispro 100 UNIT/ML 10 ML VIAL SC PRN ×2 (06:33→21:08)
[2024-10-11] MEDS: Enoxaparin 40 MG (0.4 mL) SYRINGE SC SCH (08:23)
[2024-10-11] MEDS: Terbinafine 250 MG TAB PO SCH (11:29)
[2024-10-11] MEDS: Cefepime 2 GM in Sodium Chloride 0.9% 100 ML IVPB SCH ×2 (11:30→21:08)
[2024-10-11] MEDS: Vancomycin 1.5 GRAM/300 ML BAG 1.5 GM in Premix 1 BAG IVPB SCH (11:58)
[2024-10-11] MEDS ORDERED: Vancomycin (BATCH) 2 GM in Premix 1 BAG IVPB SCH (12:00)
[2024-10-11] MEDS: Terbinafine 1% Cream 15 GM Tube TOP SCH ×2 (15:24→21:09)
[2024-10-12 04:22] LABS: #Basophils 0.03 10x3/uL (0.0-0.2); %Basophils 0.3 % (0.0-1.0); %Eosinophils 2.9 % (0.0-10.0); %Lymphocytes 9.5 % (21.0-51.0); Hematocrit 40.5 % (42.0-52.0); Mean Corpuscular HGB CONC 32.1 g/dL (32.0-36.0); Mean Corpuscular Hemoglobin 28.1 pg (27.0-31.0); Mean Corpuscular Volume 87.7 fL (78.0-98.0); Mean Platelet Volume 10.3 fL (7.4-10.4); Platelet Count 181 10x3/uL (130-400); RBC Distribution Width 13.3 % (11.5-14.5); Red Blood Cell (RBC) Count 4.62 mill/uL (4.70-6.10)
[2024-10-12 04:35] LABS: Lactic Acid 0.85 mmol/L (0.5-2.2)
[2024-10-12 04:39] LABS: ALT (SGPT) 75 U/L (8-55); AST (SGOT) 37 U/L (5-34); Albumin 3.1 g/dL (3.5-5.0); Alkaline Phosphatase 75 U/L (40-110); Anion Gap 10 mmol/L (10-20); BUN (Urea Nitrogen) 8 mg/dL (8.9-20.6); Bilirubin, Total 0.7 mg/dL (0.2-1.2); Calc. Creatinine Clearance 337 mL/min (70-130); Calcium 8.7 mg/dL (7.8-10.44); Carbon Dioxide 26 mmol/L (22-29); Chloride 100 mmol/L (98-107); Estimated GFR 128; Globulin 3.7 g/dL (2.4-3.5); Glucose 186 mg/dL (70-105); Potassium 3.7 mmol/L (3.5-5.1); Protein, Total 6.8 g/dL (6.0-8.3); Sodium 132 mmol/L (136-145)
[2024-10-12] MEDS: VANCOMYCIN 1.25 GM/250 ML BAG 1.25 GM in Premix 1 BAG IVPB SCH (09:49)
[2024-10-12] MEDS: metFORMIN 500 MG TAB PO SCH (09:50)
[2024-10-13 05:41] LABS: #Basophils 0.03 10x3/uL (0.0-0.2); %Basophils 0.3 % (0.0-1.0); %Eosinophils 5.3 % (0.0-10.0); %Lymphocytes 15.3 % (21.0-51.0); %Monocytes 8.4 % (0.0-10.0); %Neutrophils 70.3 % (42.0-75.0); Hematocrit 41.9 % (42.0-52.0); Hemoglobin 13.5 g/dL (14.0-18.0); Mean Corpuscular HGB CONC 32.2 g/dL (32.0-36.0); Mean Corpuscular Hemoglobin 28.2 pg (27.0-31.0); Mean Corpuscular Volume 87.7 fL (78.0-98.0); Mean Platelet Volume 10.6 fL (7.4-10.4); Platelet Count 188 10x3/uL (130-400); RBC Distribution Width 13.2 % (11.5-14.5); Red Blood Cell (RBC) Count 4.78 mill/uL (4.70-6.10)
[2024-10-13 06:02] LABS: ALT (SGPT) 67 U/L (8-55); AST (SGOT) 32 U/L (5-34); Albumin 3.1 g/dL (3.5-5.0); Alkaline Phosphatase 84 U/L (40-110); Anion Gap 11 mmol/L (10-20); BUN (Urea Nitrogen) 8 mg/dL (8.9-20.6); Bilirubin, Total 0.7 mg/dL (0.2-1.2); Calc. Creatinine Clearance 342 mL/min (70-130); Calcium 8.7 mg/dL (7.8-10.44); Carbon Dioxide 26 mmol/L (22-29); Chloride 99 mmol/L (98-107); Estimated GFR 128; Globulin 4.2 g/dL (2.4-3.5); Glucose 235 mg/dL (70-105); Potassium 3.8 mmol/L (3.5-5.1); Protein, Total 7.3 g/dL (6.0-8.3); Sodium 132 mmol/L (136-145)
[2024-10-13 06:04] LABS: Vancomycin, Random 20.4 ug/mL (See Comment)
[2024-10-13 08:26] VITALS: TEMP 98.5
[2024-10-13] MEDS: metFORMIN 500 MG TAB PO SCH (09:16)
[2024-10-13 12:06] VITALS: BP 111/77
== END 2024-10-13 12:20 | disposition home or self-care (01) | DRG 872 ==
LOC: ERS 20:17 → 2NO 23:23 → SURG B 10-12 17:09
PROVIDERS: ADMIT Family Medicine; ATTEND Family Medicine
DX: A41.9 Sepsis, unspecified organism (principal); L03.115 Cellulitis of right lower limb; E87.1 Hypo-osmolality and hyponatremia; Z68.43 Body mass index [BMI] 50.0-59.9, adult; B35.3 Tinea pedis; E66.9 Obesity, unspecified; E11.9 Type 2 diabetes mellitus without complications; R74.01 Elevation of levels of liver transaminase levels; R65.20 Severe sepsis without septic shock; Z90.49 Acquired absence of other specified parts of digestive tract
CPT/HCPCS: 36415; 36416; 80053; 80061; 80202; 83036; 83605; 84145; 85025; 86141; 87040; 87428; 93005; 96374; 96375; J0692; J1650; J1815; J1885; J3370; J7120; Q9967